=== PATIENT | male | born 1955 | race Caucasian/White ===

== ENCOUNTER 2018-10-31 21:50 | Emergency (ER) | payer MEDICAID ==
[~2018-10-31] VITALS: Ht 160 cm; Wt 60.0 kg
[~2018-10-31 21:50] MED LIST: ACTOS; ASPIRIN; GLIMEPIRIDE; IBUP-1542 PO; METFORMIN
[2018-10-31 21:52] VITALS: BP 128/67; PULSE 77; RESP 16; Ht 160 cm; Wt 60.0 kg
[2018-10-31] MEDS ORDERED: NAPROXEN 500 MG TAB PO ONE (23:30)
--- NOTE | 2018-10-31 23:30 | ERD ---
ER Documentation Chief Complaint Chief Complaint RIGHT FOOT PAIN X TODAY. HPI 63-year-old male with past medical history of diabetes type 2 presents with complaint of right foot pain. Patient denies any history of fall or trauma. He otherwise denies fevers, chills, laceration, rash to foot. Reports that he takes his diabetic medications daily. Describes pain as mild. States he has not had any issues ambulating despite pain. He denies any active drug or alcohol abuse. At time of examination patient able to take multiple steps in examination without issue. ROS All systems reviewed and are negative except as per history of present illness. Medications Home Meds Active Scripts Ibuprofen* (Motrin*) 600 Mg Tab, 600 MG PO Q6, #30 TAB Prov:MELISSA CESAR PA-C 10/31/18 Reported Medications [Aspirin] No Conflict Check 01/29/12 [Actos] No Conflict Check 01/29/12 [Glimpepiride] No Conflict Check 01/29/12 [Metformin] No Conflict Check 01/29/12 Allergies Allergies: Coded Allergies: No Known Allergy (Unverified , 01/29/12) PMhx/Soc History of Surgery: Yes ([place]) Anesthesia Reaction: No Hx Neurological Disorder: No Hx Respiratory Disorders: No Hx Cardiac Disorders: Yes (DIABETES) Hx Psychiatric Problems: No Hx Miscellaneous Medical Probl: No Hx Alcohol Use: No Hx Substance Use: No Hx Tobacco Use: No Smoking Status: Never smoker FmHx Family History: diabetes Physical Exam Vitals Vital Signs Date Temp Pulse Resp B/P (MAP) Pulse Ox O2 O2 Flow FiO2 Time Delivery Rate 10/31/18 97.2 77 16 128/67 100 21:52 (87) Physical Exam Const: No acute distress Head: Atraumatic Eyes: Normal Conjunctiva ENT: Normal External Ears, Nose and Mouth. Neck: Full range of motion. No meningismus. Resp: Clear to auscultation bilaterally Cardio: Regular rate and rhythm, no murmurs Abd: Soft, non tender, non distended. Normal bowel sounds Skin: No petechiae or rashes Back: No midline or flank tenderness Ext: No cyanosis, or edema Lower Extremity - bilateral: Skin: No laceration, no erythema, area of swelling, chronic changes noted to bilateral lower extremities Compartments: Soft Motor: Full active range of motion hip/knee/ankle/foot Sensation: Intact to light touch FDWS/MF/LF/P surfaces. Bones: Nontender pelvis/knee/proximal tibia/ malleoli/foot Joints: No effusion or laxity Pulses/Perfusion: 2+ DP, Capillary refill < 2 seconds Neur: Awake and alert Psych: Normal Mood and Affect Results 24 hrs Current Medications Medications Dose Sig/Dev Start Time Status Last (Trade) Ordered Route PRN Stop Time Admin Dose Reason Admin Naproxen 500 mg ONCE ONCE 10/31/18 (Naprosyn) PO 23:30 10/31/18 23:31 Procedures/MDM 63-year-old male who presents with complaint of right foot pain. I have low suspicion for any acute fracture or dislocation. Therefore imaging not obtained at this time given patient's history and benign exam. Will treat with NSAIDs. Strict return precautions explained in detail. DISPOSITION PLAN: We discussed follow up with the patient's primary care doctor within 24 to 48 hours. Patient counseled regarding my diagnostic impression and care plan. Prior to discharge all questions answered. Pt agrees with treatment plan and understands strict return precautions. Precautionary instructions provided including instructions to return to the ER if not improving or for any worsening or changing symptoms or concerns. Disclaimer: Inadvertent spelling and grammatical errors are likely due to EHR/dictation software use and do not reflect on the overall quality of patient care. Also, please note that the electronic time recorded on this note does not necessarily reflect the actual time of the patient encounter. Departure Diagnosis: Primary Impression: Foot pain Condition: Stable Patient Instructions: Sprain Foot Additional Instructions: Call your primary care doctor TOMORROW for an appointment during the next 2-3 days.See the doctor sooner or return here if your condition worsens before your appointment time. MELISSA CESAR PA-C Oct 31, 2018 23:30
== END 2018-10-31 23:41 | disposition home or self-care (01) ==
LOC: FTE 21:50
DX: M79.671 Pain in right foot (principal); E11.9 Type 2 diabetes mellitus without complications
CPT/HCPCS: Z7502; Z7610; 99282